=== PATIENT | female | born 1950 | race Two or more races ===

== ENCOUNTER 2025-01-22 04:05 | Emergency (ER) | payer MEDICARE, SELFPAY ==
[2025-01-22] VITALS (55 sets, daily range): BP systolic 113–205; BP diastolic 50–121; PULSE 57–107; TEMP 36.8; O2SAT 94–100; BMI 27.0
--- NOTE | 2025-01-22 04:11 | ED.GENADUL1 ---
HPI HPI - General Adult General Chief complaint: Skin/Abscess/Foreign Body Stated complaint: FACE NUMB/ INTERNAL ITCHING Time Seen by Provider: 01/22/25 04:07 History of Present Illness HPI narrative: This 74-year-old female with a history of diabetes who is on glyburide and also has a history of kidney disease in the past in which she had to be taken off of some medications that she cannot recall is brought to the emergency department by her son for evaluation of itching on her chest and back and numbness and tingling in her face which she describes as a pins and needle sensation or bugs crawling on her face. The symptoms have been present for the past 3 days. The patient's son states that several weeks ago she had a stomach bug after eating a bratwurst she had 2 days of nausea and vomiting and subsequently had diarrhea. Her symptoms of itching started afterwards. She has been urinating more frequently. She is not having any chest pain or shortness of breath. She does not smoke. She denies any dizziness or syncope. She has no focal weakness numbness or tingling. She has not taken any medications for her symptoms. Upon presentation her blood pressure was markedly elevated. She is on diabetic medications and cholesterol medications but not on any antihypertensives at this time. She is not having difficulty breathing or swallowing. She does not have any skin rash. 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 Related Data Home Medications ?Medication ?Instructions ?Recorded ?Confirmed atorvastatin 20 mg tablet mg 01/22/25 glimepiride 1 mg tablet mg 01/22/25 magnesium 200 mg tablet 200 mg PO DAILY 01/22/25 01/22/25 Allergies Allergy/AdvReac Type Severity Reaction Status Date / Time No Known Drug Allergies Allergy Verified 01/22/25 04:22 Opioid HPI Opioid Management Most Recent Opioid Data: Last Pain Scale 0 Today, 05:22 Last ED Pain Assessment Today, 05:22 Last MAR Pain Assessment Today, 06:38 Review of Systems ROS Status of ROS 10 or more systems reviewed and unremarkable except as noted in history and below PFSH PFSH Social History Little interest or pleasure in doing things: not at all Feeling down, depressed, or hopeless: not at all Exam Narrative Exam Narrative: Vital signs and Nursing Notes reviewed: Patient is afebrile with a normal pulse, blood pressure is elevated at 195/104, she is not hypoxic with pulse ox of 98% on room air General: Awake, alert, oriented, thin, well-appearing female, no acute distress, she moves easily about the room HEENT: Normocephalic atraumatic, mucous membranes are moist and pink, eyes are clear, normal conjunctiva, vision is grossly intact, posterior pharynx is normal in appearance. There is no swelling of the tongue, uvula or pharyngeal soft tissues Neck: Supple, no meningeal signs, no anterior or posterior cervical lymphadenopathy Chest: Lungs are clear to auscultation with good air entry, there is no wheezing rhonchi or rales appreciated no accessory muscle use, patient is speaking in complete sentences-no chest wall tenderness to palpation CVS: Regular rate and rhythm S1-S2, no murmurs rubs or gallops, pulses are brisk and equal bilaterally ABD: Soft, nondistended, nontender, no rebound guarding or rigidity, bowel sounds are normal, no pulsatile masses appreciated Extremities: Moving all extremities, no lower extremity tenderness or swelling noted, negative Homans' sign, pulses are brisk and equal bilaterally Skin: Normal in appearance without rash,pallor, petechiae or purpura Neuro: No focal deficits; she is clear, patient is ambulatory with a steady gait, 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, upper and lower extremity strength and sensation is equal bilaterally Constitutional Vital Signs, click to edit/add: Last Vital Signs Temp 98.2 F 01/22/25 04:11 Pulse 79 01/22/25 05:50 Resp 12 01/22/25 05:50 BP 183/85 H 01/22/25 05:45 Pulse Ox 94 L 01/22/25 05:45 O2 Del Method Room Air 01/22/25 04:11 Course Vital Signs Vital signs: Vital Signs Temperature 98.2 F 01/22/25 04:11 Pulse Rate 75 01/22/25 04:11 Respiratory Rate 16 01/22/25 04:11 Blood Pressure 195/104 H 01/22/25 04:11 Pulse Oximetry 98 01/22/25 04:11 Oxygen Delivery Method Room Air 01/22/25 04:11 Temperature 98.2 F 01/22/25 04:11 Pulse Rate 79 01/22/25 05:50 Respiratory Rate 12 01/22/25 05:50 Blood Pressure 183/85 H 01/22/25 05:45 Pulse Oximetry 94 L 01/22/25 05:45 Oxygen Delivery Method Room Air 01/22/25 04:11 Medical Decision Making [facility] Narrative Medical decision making narrative: This 74-year-old female with a history of diabetes and high cholesterol presents for evaluation of itching on her chest and back and a pins and needle sensation/the sensation of bugs crawling on her face. This has been present for the past several days. She is brought to the emergency department by her son. The patient recently had a GI bug in which she allegedly ate food that other people had eaten but she had microwaved it and left it in the microwave for several hours before eating it. She then had 2 days of nausea vomiting and subsequently had diarrhea. She does have a history of diabetes and her son states she has been urinating more frequently than normal. She is on medication for her diabetes that is not new for her as well as a cholesterol medication but does not take any antihypertensives. She was notably hypertensive upon arrival. She was placed on the monitor and blood pressure was continually monitored as well as her cardiac rhythm. She has not had any arrhythmia. Her blood pressure has stayed elevated greater than 180/70. She was given 10 mg of IV hydralazine for the elevated blood pressure. The patient denies any chest pain or shortness of breath. She denies any dizziness or diaphoresis. Her skin is clean without any rash. EKG is a sinus rhythm with a left bundle branch block at 57 bpm. There are no prior EKGs for comparison purposes. Again the patient denies any chest pain. An IV was placed and she was medicated with IV fluids. A cardiac workup was ordered. She has a normal white count and stable hemoglobin. Urinalysis is negative. She has mild elevation in her BUN and creatinine at 27 and 1.09 but no sign of serious kidney disease at this time. Her troponin is elevated at 102.8. Acetone is negative. Her liver function tests are also elevated with an AST of 44, ALT of 212 and alk phos of 290. Bilirubin is normal at 0.4. Patient was medicated with IV fluids, aspirin and 10 of hydralazine for the elevated blood pressure. Patient became anxious after the hydralazine. She is hyperventilating and crying. Her son states that she has had panic attacks in the past when she was admitted for kidney problems to another hospital. At that time it was thought that she had a blockage in her heart but ultimately it was decided that she did not have a blockage in her heart. The patient's son cannot recall which hospital she was at at that time but it was a hospital in [place]. She was transferred from [facility] to that hospital so it is possible that it is [facility]. A repeat EKG was ordered that is unchanged with a sinus rhythm at 80 bpm with a left bundle branch block. She denies that she is having any pain whatsoever but states that her lips are feeling numb. She was given 4 mg of IV morphine and 4 mg of IV Zofran as well as oral Valium was ordered While she was being medicated she did complain of pressure in her chest. A repeat EKG was performed that is unchanged from the first 2 which is a sinus rhythm 89 bpm with a left axis deviation and a left bundle branch block. I did ask the son to try to find a record of a prior EKG possibly on her phone on a [employer] jazmin. Repeat troponin is ordered. Due to her symptoms now of pressure in her chest, left bundle branch block in addition to aspirin, morphine Zofran IV heparin bolus and drip was ordered. I was able to access the patient's [employer] jazmin. The patient was at [facility] in December 2022 and had a echocardiogram and a Debbie comp stress test. At that time a lexicon stress results stated that it was difficult to interpret due to the left bundle branch block indicating that today's left bundle branch block is not new. She also had a cardiac cath that showed nonobstructive coronary artery disease and normal LVEDP. Cardiology at [facility] has been consulted. Lab Data Labs: Lab Results 01/22/25 01/22/25 01/22/25 Range/Units 04:58 05:01 05:03 WBC 8.7 (4.0-11.0) 10^3/uL RBC 4.28 (4.20-5.40) 10^6/uL Hgb 13.4 (12.0-16.0) g/dL Hct 40.7 (36.0-48.0) % MCV 95.1 (81.0-99.0) fL MCH 31.3 (26.7-34.0) pg MCHC 32.9 (29.9-35.2) g/dL RDW 15.8 H (11.0-15.0) % Plt Count 212 (150-450) 10^3/uL MPV 10.9 (9.5-13.5) fL Neut % (Auto) 66.4 (43.0-75.0) % Lymph % (Auto) 24.0 (20.5-60.0) % [place] % (Auto) 7.2 (1.7-12.0) % Eos % (Auto) 1.6 (0.9-7.0) % Baso % (Auto) 0.5 (0.2-2.0) % Neut # (Auto) 5.8 (1.4-6.5) 10^3/uL Lymph # (Auto) 2.1 (1.2-3.8) 10^3/uL [place] # (Auto) 0.6 (0.3-0.8) 10^3/uL Eos # (Auto) 0.1 (0.0-0.7) 10^3/uL Baso # (Auto) 0.0 (0.0-0.1) 10^3/uL Abs Immat Gran (auto) 0.03 (0.00-0.03) 10^3/uL Imm/Tot Granulo (auto) 0.3 (0.0-0.5) % D-Dimer 0.40 (<=0.59) mg/L FEU Sodium 136 (136-145) mmol/L Potassium 4.2 (3.5-5.1) mmol/L Chloride 100 (98-107) mmol/L Carbon Dioxide 27.9 (21.0-32.0) mmol/L Anion Gap 12.3 BUN 27.0 H (7.0-18.0) mg/dL Creatinine 1.09 H (0.55-1.02) mg/dL Est GFR ( Amer) 59 L (>=60 mL/min/1.73m^2) Est GFR (Non-Af Amer) 49 L (>=60 mL/min/1.73m^2) BUN/Creatinine Ratio 24.8 Glucose 118 H (74-106) mg/dL Calcium 9.0 (8.5-10.1) mg/dL Total Bilirubin 0.4 (0.2-1.0) mg/dL AST 44 H (15-37) U/L ALT 212 H (14-59) U/L Alkaline Phosphatase 290 H (46-116) U/L Troponin I High Sens 102.8 H* (4.0-51.3) pg/mL Total Protein 7.5 (6.4-8.2) g/dL Albumin 3.1 L (3.4-5.0) g/dL Globulin 4.4 g/dL Albumin/Globulin Ratio 0.7 Urine Color Lt. yellow (YELLOW) Urine Clarity Clear (CLEAR) Urine pH 6.5 (5.0-9.0) Ur Specific [place] <=1.005 A (1.005-1.025) Urine Protein 30 A (NEG/TRACE) mg/dL Urine Glucose (UA) Negative (NEGATIVE) mg/dL Urine Ketones Negative (NEGATIVE) mg/dL Urine Occult Blood Trace-i (NEGATIVE) Urine Nitrite Negative (NEGATIVE) Urine Bilirubin Negative (NEGATIVE) Urine Urobilinogen 0.2 (0.2-1.0) EU/dL Ur Leukocyte Esterase Negative (NEGATIVE) Urine RBC 0-2 (0-2) #/HPF Urine WBC 0-2 A (NONE SEEN) #/HPF Ur Squamous Epith Cells Rare (NONE/RARE) #/LPF Urine Crystals None seen (None Seen) #/HPF Urine Bacteria None seen (NONE SEEN) #/HPF Urine Casts None seen (NONE SEEN) #/LPF Urine Mucus None seen (NONE SEEN) Ur Culture Indicated? No Acetone, Qual Negative (NEGATIVE) ECG Data Attestation: I personally reviewed and interpreted this ECG as follows: (Sinus rhythm at 57 bpm, left axis deviation, left bundle branch block, no acute ST segment elevation or T wave inversion) Prior ECG tracings: not available for review Discharge Plan Discharge Patient Disposition: Still a Patient
--- NOTE | 2025-01-22 04:37 | ECG_ITS ---
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 Measurements Intervals [place] Rate: 57 P: 54 [place]: 196 QRS: -33 QRSD: 136 T: 133 QT: 488 QTc: 481 Interpretive Statements 1100 Sinus rhythm 2550 Left bundle branch block 7200 Abnormal left axis deviation 9150 abnormal ECG No previous ECG available for comparison Electronically Signed On 01-22-2025 19:48:30 EDT by OSBALDO MENDIOLA M.D.
[2025-01-22 05:08] LABS: Basophils Percent Auto 0.5 % (0.2-2.0); Eosinophils Absolute Auto 0.1 10^3/uL (0.0-0.7); Eosinophils Percent Auto 1.6 % (0.9-7.0); Hematocrit 40.7 % (36.0-48.0); Hemoglobin 13.4 g/dL (12.0-16.0); Immature Granulocytes Abs Auto 0.03 10^3/uL (0.00-0.03); Immature Granulocytes Pct Auto 0.3 % (0.0-0.5); Lymphocytes Absolute Auto 2.1 10^3/uL (1.2-3.8); Mean Corpuscular HGB Conc 32.9 g/dL (29.9-35.2); Mean Corpuscular Hemoglobin 31.3 pg (26.7-34.0); Mean Corpuscular Volume 95.1 fL (81.0-99.0); Mean Platelet Volume 10.9 fL (9.5-13.5); Monocytes Absolute Auto 0.6 10^3/uL (0.3-0.8); Monocytes Percent Auto 7.2 % (1.7-12.0); Neutrophils Absolute Auto 5.8 10^3/uL (1.4-6.5); Neutrophils Percent Auto 66.4 % (43.0-75.0); Platelet Count 212 10^3/uL (150-450); Red Blood Count 4.28 10^6/uL (4.20-5.40); Red Cell Distribution Width 15.8 % (11.0-15.0); White Blood Count 8.7 10^3/uL (4.0-11.0)
[2025-01-22 05:09] LABS: Bilirubin Urine NEGATIVE (NEGATIVE); Blood Urine TRACE-I (NEGATIVE); Clarity Urine CLEAR (CLEAR); Color Urine LT. YELLOW (YELLOW); Glucose Urine UA NEGATIVE (NEGATIVE); Ketones Urine NEGATIVE (NEGATIVE); Leukocyte Esterase Urine NEGATIVE (NEGATIVE); Nitrite Urine NEGATIVE (NEGATIVE); Protein Urine 30 mg/dL (NEG/TRACE); Specific Gravity Urine <=1.005 (1.005-1.025); Urobilinogen Urine 0.2 EU/dL (0.2-1.0); pH Urine 6.5 (5.0-9.0)
[2025-01-22] MEDS: 0.9 % SODIUM CHLORIDE 1,000 ML 1000 ML IV (05:09)
[2025-01-22 05:16] LABS: Bacteria Urine NONE SEEN #/HPF (NONE SEEN); Cast Seen? NONE SEEN #/LPF (NONE SEEN); Crystals Seen? None Seen #/HPF (None Seen); Mucus Urine NONE SEEN (NONE SEEN); RBC Urine 0-2 #/HPF (0-2); Squamous Epithelial Cell Urine RARE #/LPF (NONE/RARE); Urine Culture Indicated NO; WBC Urine 0-2 #/HPF (NONE SEEN)
[2025-01-22 05:22] LABS: Acetone NEGATIVE (NEGATIVE)
--- NOTE | 2025-01-22 05:23 | PC.NURSE ---
IVP Vasotec not given per VO. Pt's BP lowered since first few readings in 210's SBP.
--- NOTE | 2025-01-22 05:25 | PC.NURSE ---
Pt states that her itching feels like it's coming from the inside --states no known kidney disease. No rash present. Back, chest, and arms itch. No worsening circumoral numbness. All extremity strength is equal, and speech is clear.
[2025-01-22 05:27] LABS: Alanine Aminotransferase 212 U/L (14-59); Albumin Globulin Ratio 0.7; Albumin Level 3.1 g/dL (3.4-5.0); Alkaline Phosphatase 290 U/L (46-116); Anion Gap 12.3; Aspartate Amino Transferase 44 U/L (15-37); BUN Creatinine Ratio 24.8; Bilirubin Total 0.4 mg/dL (0.2-1.0); Carbon Dioxide 27.9 mmol/L (21.0-32.0); Chloride 100 mmol/L (98-107); Estimated GFR (African America 59 (>=60 mL/min/1.73m^2); Estimated GFR (Non-African Ame 49 (>=60 mL/min/1.73m^2); Globulin 4.4 g/dL; Glucose 118 mg/dL (74-106); Potassium 4.2 mmol/L (3.5-5.1); Sodium 136 mmol/L (136-145); Total Protein 7.5 g/dL (6.4-8.2)
[2025-01-22 05:28] LABS: Troponin I High Sensitivity 102.8 pg/mL (4.0-51.3)
--- NOTE | 2025-01-22 05:34 | PC.NURSE ---
Lab called with critical troponin--MD notified immediately and acknowledged.
--- NOTE | 2025-01-22 05:36 | XR_ITS ---
The [address] [address] Patient Name: CAYETANO OCASIO MRN: [id number] date: 1950 Sex: F Assigned Patient Location: ER Current Patient Location: ER Accession/Order Number: [id number] Exam Date: 01/22/2025 06:25 Report Date: 01/22/2025 06:27 At the request of: HAMZAH QUINTERO MD Procedure: XR chest 1V XR chest 1V 01/22/2025 5:50 AM SIGNS AND SYMPTOMS: ^elevated trop ^Y PROTOCOL: Frontal radiograph the chest COMPARISON: None FINDINGS: The trachea is midline. The heart and mediastinal structures are within normal limits. There is perihilar vascular prominence and interstitial prominence suggesting mild volume overload/congestive heart failure. The bony thorax is intact. XR/XR chest 1V IMPRESSION: There is perihilar vascular prominence and interstitial prominence suggesting mild volume overload/congestive heart failure. Impression dictated by: Jesus Ashford M.D. 01/22/2025 6:27 AM Dictation Location[facility] Electronically authenticated by: [id number] Y Date: 01/22/2025 06:27
[2025-01-22] MEDS: ASPIRIN 81 MG TAB.CHEW 324 MG PO (05:42)
[2025-01-22] MEDS: HYDRALAZINE HCL 20 MG/ML VIAL 10 MG IVP (05:44)
--- NOTE | 2025-01-22 05:51 | PC.NURSE ---
Addendum entered by Koki Gavin RN 01/23/25 04:26: Hydralazine given NOT vasotec Original Note: Vasotec given for SBP over 180.
--- NOTE | 2025-01-22 06:00 | ECG_ITS ---
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 Measurements Intervals [place] Rate: 80 P: 53 [place]: 184 QRS: -19 QRSD: 134 T: 130 QT: 434 QTc: 469 Interpretive Statements 1100 Sinus rhythm 2550 Left bundle branch block 9150 abnormal ECG Compared to ECG 01/22/2025 05:14:47 No significant changes Electronically Signed On 01-22-2025 19:48:58 EDT by OSBALDO MENDIOLA M.D.
--- NOTE | 2025-01-22 06:22 | ECG_ITS ---
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 Measurements Intervals [place] Rate: 89 P: 50 [place]: 162 QRS: -30 QRSD: 130 T: 122 QT: 398 QTc: 444 Interpretive Statements 1100 Sinus rhythm 2550 Left bundle branch block 9150 abnormal ECG Compared to ECG 01/22/2025 05:58:09 No significant changes Electronically Signed On 01-22-2025 19:49:08 EDT by OSBALDO MENDIOLA M.D.
[2025-01-22] MEDS: DIAZEPAM 5 MG TABLET PO (06:32)
[2025-01-22] MEDS: HEPARIN SODIUM,PORCINE/D5W 25,000 UNIT/500 ML IV.SOLN 15.023 UNIT IV (06:33)
[2025-01-22] MEDS: HEPARIN SODIUM (PORCINE) 5,000 UNIT/ML VIAL 3800 UNIT IV (06:36)
[2025-01-22] MEDS: MORPHINE SULFATE 4 MG/ML VIAL IV (06:38)
[2025-01-22] MEDS: ONDANSETRON PF 4 MG/2 ML VIAL IV (06:38)
[2025-01-22 06:58] LABS: INR 0.96; Prothrombin Time 10.2 sec (9.0-11.6)
[2025-01-22 07:03] LABS: Troponin I High Sensitivity 117.3 pg/mL (4.0-51.3)
[2025-01-22 09:08] LABS: Partial Thromboplastin Time 101.6 sec (22.3-36.2)
--- NOTE | 2025-01-22 09:21 | ED.GENADUL1 ---
HPI HPI - General Adult General Chief complaint: Skin/Abscess/Foreign Body Stated complaint: FACE NUMB/ INTERNAL ITCHING Time Seen by Provider: 01/22/25 04:07 Source: patient Mode of arrival: walk-in History of Present Illness HPI narrative: 74-year-old female presents to the emergency department and was initially seen by Dr. Goyal and signed out to me after discussing the case with her thoroughly. Please see her full history and physical exam. Related Data Home Medications ?Medication ?Instructions ?Recorded ?Confirmed atorvastatin 20 mg tablet mg 01/22/25 glimepiride 1 mg tablet mg 01/22/25 magnesium 200 mg tablet 200 mg PO DAILY 01/22/25 01/22/25 Allergies Allergy/AdvReac Type Severity Reaction Status Date / Time No Known Drug Allergies Allergy Verified 01/22/25 04:22 Opioid HPI Opioid Management Most Recent Opioid Data: Last Pain Scale 0 Today, 05:22 Last ED Pain Assessment Today, 05:22 Last MAR Pain Assessment Today, 06:38 PFSH PFSH Social History Little interest or pleasure in doing things: not at all Feeling down, depressed, or hopeless: not at all Exam Constitutional Vital Signs, click to edit/add: Last Vital Signs Temp 98.2 F 01/22/25 04:11 Pulse 65 01/22/25 09:15 Resp 20 01/22/25 09:15 BP 145/76 H 01/22/25 09:15 Pulse Ox 98 01/22/25 09:15 O2 Del Method Room Air 01/22/25 04:11 Course Vital Signs Vital signs: Vital Signs Temperature 98.2 F 01/22/25 04:11 Pulse Rate 75 01/22/25 04:11 Respiratory Rate 16 01/22/25 04:11 Blood Pressure 195/104 H 01/22/25 04:11 Pulse Oximetry 98 01/22/25 04:11 Oxygen Delivery Method Room Air 01/22/25 04:11 Temperature 98.2 F 01/22/25 04:11 Pulse Rate 65 01/22/25 09:15 Respiratory Rate 20 01/22/25 09:15 Blood Pressure 145/76 H 01/22/25 09:15 Pulse Oximetry 98 01/22/25 09:15 Oxygen Delivery Method Room Air 01/22/25 04:11 Medical Decision Making MDM Narrative Medical decision making narrative: The patient was found to have elevated troponin. I spoke to [facility] but they have no beds available for most likely 48 hours. The patient prefers to go to [facility] and I have spoken to Dr. Ehsan de la cruz who accepts the patient. She is hemodynamically stable and agreeable for transfer. The patient had an essentially normal heart catheterization in 2022 at [facility] and I suspect that her elevated troponin may be due to her blood pressure. Findings are discussed with the patient and her family. Differential Diagnosis Differential Diagnosis: Elevated troponin, hypertension, anxiety Lab Data Lab results reviewed: Yes I reviewed the patient's lab results Labs: Lab Results 01/22/25 01/22/25 01/22/25 Range/Units 04:58 05:01 05:03 WBC 8.7 (4.0-11.0) 10^3/uL RBC 4.28 (4.20-5.40) 10^6/uL Hgb 13.4 (12.0-16.0) g/dL Hct 40.7 (36.0-48.0) % MCV 95.1 (81.0-99.0) fL MCH 31.3 (26.7-34.0) pg MCHC 32.9 (29.9-35.2) g/dL RDW 15.8 H (11.0-15.0) % Plt Count 212 (150-450) 10^3/uL MPV 10.9 (9.5-13.5) fL Neut % (Auto) 66.4 (43.0-75.0) % Lymph % (Auto) 24.0 (20.5-60.0) % [place] % (Auto) 7.2 (1.7-12.0) % Eos % (Auto) 1.6 (0.9-7.0) % Baso % (Auto) 0.5 (0.2-2.0) % Neut # (Auto) 5.8 (1.4-6.5) 10^3/uL Lymph # (Auto) 2.1 (1.2-3.8) 10^3/uL [place] # (Auto) 0.6 (0.3-0.8) 10^3/uL Eos # (Auto) 0.1 (0.0-0.7) 10^3/uL Baso # (Auto) 0.0 (0.0-0.1) 10^3/uL Abs Immat Gran (auto) 0.03 (0.00-0.03) 10^3/uL Imm/Tot Granulo (auto) 0.3 (0.0-0.5) % PT (9.0-11.6) sec INR APTT (22.3-36.2) sec D-Dimer 0.40 (<=0.59) mg/L FEU Sodium 136 (136-145) mmol/L Potassium 4.2 (3.5-5.1) mmol/L Chloride 100 (98-107) mmol/L Carbon Dioxide 27.9 (21.0-32.0) mmol/L Anion Gap 12.3 BUN 27.0 H (7.0-18.0) mg/dL Creatinine 1.09 H (0.55-1.02) mg/dL Est GFR ( Amer) 59 L (>=60 mL/min/1.73m^2) Est GFR (Non-Af Amer) 49 L (>=60 mL/min/1.73m^2) BUN/Creatinine Ratio 24.8 Glucose 118 H (74-106) mg/dL Calcium 9.0 (8.5-10.1) mg/dL Total Bilirubin 0.4 (0.2-1.0) mg/dL AST 44 H (15-37) U/L ALT 212 H (14-59) U/L Alkaline Phosphatase 290 H (46-116) U/L Troponin I High Sens 102.8 H* (4.0-51.3) pg/mL NT-Pro-B Natriuret Pep (<=1800.0) pg/mL Total Protein 7.5 (6.4-8.2) g/dL Albumin 3.1 L (3.4-5.0) g/dL Globulin 4.4 g/dL Albumin/Globulin Ratio 0.7 Urine Color Lt. yellow (YELLOW) Urine Clarity Clear (CLEAR) Urine pH 6.5 (5.0-9.0) Ur Specific [place] <=1.005 A (1.005-1.025) Urine Protein 30 A (NEG/TRACE) mg/dL Urine Glucose (UA) Negative (NEGATIVE) mg/dL Urine Ketones Negative (NEGATIVE) mg/dL Urine Occult Blood Trace-i (NEGATIVE) Urine Nitrite Negative (NEGATIVE) Urine Bilirubin Negative (NEGATIVE) Urine Urobilinogen 0.2 (0.2-1.0) EU/dL Ur Leukocyte Esterase Negative (NEGATIVE) Urine RBC 0-2 (0-2) #/HPF Urine WBC 0-2 A (NONE SEEN) #/HPF Ur Squamous Epith Cells Rare (NONE/RARE) #/LPF Urine Crystals None seen (None Seen) #/HPF Urine Bacteria None seen (NONE SEEN) #/HPF Urine Casts None seen (NONE SEEN) #/LPF Urine Mucus None seen (NONE SEEN) Ur Culture Indicated? No Acetone, Qual Negative (NEGATIVE) 01/22/25 Range/Units 06:38 WBC (4.0-11.0) 10^3/uL RBC (4.20-5.40) 10^6/uL Hgb (12.0-16.0) g/dL Hct (36.0-48.0) % MCV (81.0-99.0) fL MCH (26.7-34.0) pg MCHC (29.9-35.2) g/dL RDW (11.0-15.0) % Plt Count (150-450) 10^3/uL MPV (9.5-13.5) fL Neut % (Auto) (43.0-75.0) % Lymph % (Auto) (20.5-60.0) % [place] % (Auto) (1.7-12.0) % Eos % (Auto) (0.9-7.0) % Baso % (Auto) (0.2-2.0) % Neut # (Auto) (1.4-6.5) 10^3/uL Lymph # (Auto) (1.2-3.8) 10^3/uL [place] # (Auto) (0.3-0.8) 10^3/uL Eos # (Auto) (0.0-0.7) 10^3/uL Baso # (Auto) (0.0-0.1) 10^3/uL Abs Immat Gran (auto) (0.00-0.03) 10^3/uL Imm/Tot Granulo (auto) (0.0-0.5) % PT 10.2 (9.0-11.6) sec INR 0.96 APTT 101.6 H* (22.3-36.2) sec D-Dimer (<=0.59) mg/L FEU Sodium (136-145) mmol/L Potassium (3.5-5.1) mmol/L Chloride (98-107) mmol/L Carbon Dioxide (21.0-32.0) mmol/L Anion Gap BUN (7.0-18.0) mg/dL Creatinine (0.55-1.02) mg/dL Est GFR ( Amer) (>=60 mL/min/1.73m^2) Est GFR (Non-Af Amer) (>=60 mL/min/1.73m^2) BUN/Creatinine Ratio Glucose (74-106) mg/dL Calcium (8.5-10.1) mg/dL Total Bilirubin (0.2-1.0) mg/dL AST (15-37) U/L ALT (14-59) U/L Alkaline Phosphatase (46-116) U/L Troponin I High Sens 117.3 H* (4.0-51.3) pg/mL NT-Pro-B Natriuret Pep 516.0 (<=1800.0) pg/mL Total Protein (6.4-8.2) g/dL Albumin (3.4-5.0) g/dL Globulin g/dL Albumin/Globulin Ratio Urine Color (YELLOW) Urine Clarity (CLEAR) Urine pH (5.0-9.0) Ur Specific [place] (1.005-1.025) Urine Protein (NEG/TRACE) mg/dL Urine Glucose (UA) (NEGATIVE) mg/dL Urine Ketones (NEGATIVE) mg/dL Urine Occult Blood (NEGATIVE) Urine Nitrite (NEGATIVE) Urine Bilirubin (NEGATIVE) Urine Urobilinogen (0.2-1.0) EU/dL Ur Leukocyte Esterase (NEGATIVE) Urine RBC (0-2) #/HPF Urine WBC (NONE SEEN) #/HPF Ur Squamous Epith Cells (NONE/RARE) #/LPF Urine Crystals (None Seen) #/HPF Urine Bacteria (NONE SEEN) #/HPF Urine Casts (NONE SEEN) #/LPF Urine Mucus (NONE SEEN) Ur Culture Indicated? Acetone, Qual (NEGATIVE) Imaging Data Chest x-ray: Radiologist's impression: ITS Impressions Chest X-Ray 01/22/25 05:36 IMPRESSION: There is perihilar vascular prominence and interstitial prominence suggesting mild volume overload/congestive heart failure. Impression dictated by: Jesus Ashford M.D. 01/22/2025 6:27 AM Dictation Location[facility] Electronically authenticated by: [id number] Y Date: 01/22/2025 06:27 ECG Data Attestation: I personally reviewed and interpreted this ECG as follows: (EKG on my interpretation shows sinus rhythm with left bundle branch block which is old) Discharge Plan Discharge Chief Complaint: Skin/Abscess/Foreign Body Clinical Impression: Elevated troponin, Hypertension Patient Disposition: [facility] Time of Disposition Decision: 09:20 Discharge Location: [facility] Condition: Fair Mode of Transportation: EMS
[2025-01-22] MEDS: DIAZEPAM 10 MG/2 ML SYRINGE 2.5 MG IV (10:46)
== END 2025-01-22 11:06 | disposition short-term general hospital (02) ==
PROVIDERS: Emergency Medicine; Emergency Provider Emergency Medicine; PCP Nurse Practitioner Family
DX: I10 Essential (primary) hypertension (principal); R79.89 Other specified abnormal findings of blood chemistry; E11.9 Type 2 diabetes mellitus without complications; Z79.84 Long term (current) use of oral hypoglycemic drugs; Z79.899 Other long term (current) drug therapy; E78.00 Pure hypercholesterolemia, unspecified; R20.0 Anesthesia of skin
CPT/HCPCS: 36415; 71045; 80053; 81001; 82009; 83880; 84484; 85025; 85378; 85610; 85730; 93005; 96374; 96375; 99285; J0360; J1644; J2270; J2405; J3360